=== PATIENT | male | born 1975 | race Caucasian/White ===

== ENCOUNTER 2017-05-26 20:28 | Emergency (ER) | payer BC, SELFPAY ==
[~2017-05-26 20:28] MED LIST: Sodium Chloride Irrig Solution 250 ML BOT ONE
[2017-05-26] MEDS ORDERED: Adacel (T-DAP) 0.5 ML VIAL ONE (20:37)
[2017-05-26] MEDS ORDERED: Lidocaine 1% w/Epinephrine 1:100K 20 ML VIAL ONE (20:48)
[2017-05-26] MEDS ORDERED: Triple Antibiotic Oint 1 GM Packet ONE (21:16)
== END 2017-05-26 21:18 | disposition home or self-care (01) ==
LOC: MADERS 20:28
DX: S51.811A Laceration without foreign body of right forearm, initial encounter (principal); F17.220 Nicotine dependence, chewing tobacco, uncomplicated; W26.0XXA Contact with knife, initial encounter
CPT/HCPCS: 12001; 90715; J2001